=== PATIENT | male | born 1935 | race Caucasian/White ===

== ENCOUNTER 2017-09-15 17:18 | Inpatient (IN) | payer MEDICARE ==
[~2017-09-15 17:18] MED LIST: ISOVUE-370 76%-LOCM 1 ML ONE
[2017-09-15 19:11] LABS: #Eosinphils 0.1 thou/uL (0.0-0.7); #Lymphocytes 1.9 thou/uL (1.20-3.40); #Monocytes 0.9 thou/uL (0.11-0.59); #Neutrophils 5.7 thou/uL (1.40-6.50); %Basophils 0.5 % (0.0-1.0); %Eosinophils 0.9 % (0.0-10.0); %Lymphocytes 22.5 % (21.0-51.0); %Monocytes 10.2 % (0.0-10.0); %Neutrophils 65.8 % (42.0-75.0); Hemoglobin 13.5 g/dL (14.0-18.0); Mean Corpuscular HGB CONC 33.4 g/dL (32.0-36.0); Mean Corpuscular Volume 95.8 fl (80.0-94.0); Mean Platelet Volume 8.6 fL (7.4-10.4); Platelet Count 202 thou/uL (130-400); RBC Distribution Width 12.3 % (11.5-14.5); Red Blood Cell (RBC) Count 4.24 mill/uL (4.70-6.10); White Blood Cell (WBC) Count 8.6 thou/uL (4.8-10.8)
[2017-09-15 19:19] LABS: Prothrombin Time 13.3 SEC (12.0-14.7)
[2017-09-15 19:34] LABS: ALT (SGPT) 11 U/L (8-55); AST (SGOT) 13 U/L (5-34); Albumin 3.6 g/dL (3.4-4.8); Alkaline Phosphatase 70 U/L (40-150); Anion Gap 9 mmol/L (10-20); BUN (Urea Nitrogen) 21 mg/dL (8.4-25.7); Bilirubin, Total 0.7 mg/dL (0.2-1.2); Calc. Creatinine Clearance 0 mL/min (70-130); Calcium 8.4 mg/dL (7.8-10.44); Carbon Dioxide 32 mmol/L (23-31); Chloride 103 mmol/L (98-107); Estimated GFR-MDRD Greater than 90; Globulin 2.3 g/dL (2.4-3.5); Glucose 90 mg/dL (83-110); Potassium 3.8 mmol/L (3.5-5.1); Protein, Total 5.9 g/dL (5.8-8.1); Sodium 140 mmol/L (136-145)
[2017-09-15 19:39] LABS: CKMB 0.9 ng/mL (0-6.6); Troponin I Less than 0.010 ng/mL (< 0.028)
--- NOTE | 2017-09-15 20:26 | CT ---
CT AORTOGRAM CHEST AND ABDOMEN WITH IV CONTRAST: 09/15/17 Multiple axial tomograms obtained through the chest and abdomen from aortic arch through the aortic b ifurcation in the arterial phase and multiplanar reconstruction. 3D postprocessing following an aorto gram protocol. HISTORY: Chest pain. Assess for dissection. Thoracic and abdominal aorta shows no evidence of dissection. There is atherosclerotic change involvi ng the distal abdominal aorta with peripheral thrombus producing mild luminal narrowing. There is mil d ulceration within this thrombus noted. There is no significant aneurysmal dilatation. The diameter of the distal abdominal aorta just proximal to the bifurcation measuring at 1.5 cm. the major abdomin al aortic branches including celiac artery, superior mesenteric artery, and renal arteries appear unr emarkable. aortic bifurcation is patent with mild disease seen in the visualized common iliac arterie s. No significant iliac stenosis. There is a fixed diaphragmatic hernia with large portion of the stomach fixed above the diaphragm. Liver, spleen and pancreas are unremarkable. Adrenal glands and kidneys unremarkable. Bowel loops unr emarkable. IMPRESSION: 1. No evidence of thoracic or abdominal aortic dissection. 2. Atherosclerotic changes involving the distal abdominal aorta with prominent soft plaque/throm bus narrowing the lumen and there is evidence of mild ulceration within this soft plaque. No aneurysm al dilatation and no evidence of significant stenosis. 3. Fixed diaphragmatic hernia. POS: ROBIN
[2017-09-15 22:39] LABS: Bilirubin Negative (Negative); Blood, Urine Negative (Negative); Clarity CLEAR (Clear); Glucose, Urine (Dipstick) Negative (Negative); Leukocyte Negative (Negative); Nitrite Negative (Negative); Protein, Urine (Dipstick) Negative (Neg-Trace); Specific Gravity, Urine 1.024 (1.002-1.036)
[2017-09-15] MEDS ORDERED: Ondansetron HCl/PF 4 MG/2 ML Vial IVP PRN (23:27)
[2017-09-15] MEDS ORDERED: Ondansetron ODT 4 MG TAB SL PRN (23:27)
[2017-09-15] MEDS ORDERED: Acetaminophen 325 MG TAB PO PRN (23:27)
[2017-09-15 23:34] LABS: Troponin I 0.023 ng/mL (< 0.028)
[2017-09-15 23:50] VITALS: BMI 21.9
[2017-09-16 02:37] LABS: Troponin I Less than 0.010 ng/mL (< 0.028)
[2017-09-16 04:59] LABS: #Eosinphils 0.1 thou/uL (0.0-0.7); #Lymphocytes 2.1 thou/uL (1.20-3.40); #Monocytes 0.8 thou/uL (0.11-0.59); #Neutrophils 5.8 thou/uL (1.40-6.50); %Eosinophils 0.8 % (0.0-10.0); %Lymphocytes 23.7 % (21.0-51.0); %Monocytes 9.2 % (0.0-10.0); %Neutrophils 66.3 % (42.0-75.0); Hemoglobin 13.8 g/dL (14.0-18.0); Mean Corpuscular HGB CONC 32.9 g/dL (32.0-36.0); Mean Corpuscular Hemoglobin 31.7 pg (27.0-31.0); Mean Corpuscular Volume 96.2 fl (80.0-94.0); Mean Platelet Volume 8.4 fL (7.4-10.4); Platelet Count 201 thou/uL (130-400); RBC Distribution Width 12.2 % (11.5-14.5); Red Blood Cell (RBC) Count 4.37 mill/uL (4.70-6.10); White Blood Cell (WBC) Count 8.8 thou/uL (4.8-10.8)
--- NOTE | 2017-09-16 05:03 | HP ---
CHIEF COMPLAINT: Chest pain. HISTORY OF PRESENT ILLNESS: This is an 82-year-old male with a known history of coronary artery dise ase, status post CABG x3 vessels and stent, hypertension, who presents with a chief complaint of ches t pain. Specifically, the patient describes a sharp chest pain associated with nausea and diaphoresi s. His care earlier today at the time of my evaluation is currently resolved. The patient is a reas onable historian. He has his daughter and at bedside. His daughter does supplement his history as well. It appears that over the last week, the patient has been having some intermittent lower abdominal graciela n, which is currently not present as well. Daughter states that he has never had abdominal pain in t he past either. The patient denies any diarrhea or constipation and endorses some "darkness" to the stool, but he is not completely able to recall the consistency of his stool. While he has had a week long history of abdominal discomfort earlier today with the chest pain was the first time he actuall y had nausea feeling. In the emergency department, the patient was evaluated with a CTA for possible aortic dissection. Wh ile it was negative for aortic dissection, it did indicate a mildly ulcerated aortic thrombus. There is also evidence of significant atherosclerotic plaque disease in the aorta. REVIEW OF SYSTEMS: As per HPI. Constitutional: No fevers, chills, no recent weight changes. HEENT : No new headaches or vision changes or dizziness. Cardiovascular: Chest pain as described above. This is subjectively described as different from his prior episodes of cardiac chest pain. Respirat ory: No recent upper respiratory infection symptoms such as cough, sinus congestion, postnasal drip. Gastrointestinal: Episodic of nausea, no emesis. Stools as described above. Last bowel movement was earlier today. Genitourinary: Denies any dysuria, any change in urine in quantity or quality. Musculoskeletal: Denies any moderate myalgias, arthralgias, malaise or fatigue. Neurologic: Denies any paresthesias or anesthesias. Remainder of review of systems otherwise negative. PAST MEDICAL HISTORY: As per HPI includes the followin. Status post CABG in 1994 with ODOM to the LAD and vein graft to the obtuse marginal, first jonas hardy. 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 2. Status post cholecystectomy. 3. Status post circumcision. 4. Coronary artery disease, status post CABG as described above. 5. Hypertension. 6. Hyperlipidemia. 7. Psoriasis. 8. Status post hemorrhoid surgery. 9. Status post skin cancer removal. FAMILY HISTORY: Significant for cardiovascular disease. HOME MEDICATIONS: Please see the EMR for full regimen. The patient and his family deny any changes within the last month. Of note, his Plavix was discontinued approximately 6 months ago on an outpati ent basis. The patient himself is not clear as to the reason for the discontinuation. SOCIAL HISTORY: The patient is . His is at bedside. His daughter is at bedside. Denie s any alcohol or tobacco use or illicit drug use. PHYSICAL EXAMINATION: VITAL SIGNS: Temperature 97.7, pulse of 62, blood pressure 188/86, respirations 16, satting 96% on r oom air. GENERAL: The patient is awake, alert, appropriate, in no acute distress, lying in the hospital bed. HEENT: Normocephalic, atraumatic, extraocular motions are intact. Pupils are equal and reactive. M oist mucous membranes. CARDIOVASCULAR: S1, S2. Pulses 2+ bilateral upper extremities. No murmurs, rubs, or gallops. No p itting pedal edema. RESPIRATORY: Clear to auscultation. Reasonable air movement. No wheezes, rales, or rhonchi. ABDOMEN: Positive bowel sounds, soft, nontender to palpation. No bruits appreciated. MUSCULOSKELETAL: Moving all 4 extremities equally. LABORATORY AND IMAGING: WBC 8.6, hemoglobin 13.5, hematocrit 40.6, platelets 202. PT 13.3, INR 1.0. Sodium 140, potassium 3.8, chloride 103, bicarbonate 32, BUN 21, creatinine 0.79, glucose 90, calci um 8.4, total bilirubin 0.7, AST 13, ALT 11, alkaline phosphatase 70, CK-MB 0.9, troponin has been 0. 01, then 0.023, BNP natriuretic peptide 65.8, total protein 5.9, albumin 3.6. UA is bland. IMAGING: On September 15, 2015, CT aortogram of the chest and abdomen with IV contrast. Impression "n o evidence of thoracic or abdominal aortic dissection. Atherosclerotic changes involving the distal abdominal aorta with prominent soft plaque/thrombus narrowing the lumen and there is evidence of mild ulceration within the soft plaque. Aneurysmal dilatation, no evidence of significant stenosis. Fix ed diaphragmatic hernia." ASSESSMENT AND PLAN: This is an 82-year-old male with a known history of coronary artery disease, st atus post coronary artery bypass graft, hypertension, who presents with a chief complaint of chest pa in. 1. Chest pain. The patient certainly has a significant cardiac history reported, though the patient for de jocelyn cardiac disease on top of his known coronary artery disease. Serial troponins, echocard iogram in the morning. Would appreciate Cardiology consultation for the patient's known complex hist ory. 2. Abdominal pain accompanied by chest pain. The patient's CT aortic dissection has been negative f or dissection; however, there is noted mild ulceration within an intraluminal plaque. The patient is currently already on aspirin and statin. I wonder if the patient is a candidate or would benefit fr om any further anticoagulation with Plavix, so I defer to cardiology evaluation. Also, with the ananth ent still has atherosclerotic disease, he certainly is at risk for perhaps the development of anginal discomfort that would be explanatory of his belly pain. In light of his "dark stool," the patient w ill also have a heme check of his stool as well. 3. Hypertension, stable. 4. Diet: N.p.o. after midnight. 5. Activity: As tolerated. 6. Deep venous thrombosis prophylaxis, heparin and TEDs. 7. Admit the patient to observation telemetry. Thank you for asking me to care for your patient. Questions or concerns, contact me at [facility].
[2017-09-16 05:23] LABS: ALT (SGPT) 10 U/L (8-55); AST (SGOT) 11 U/L (5-34); Albumin 3.5 g/dL (3.4-4.8); Alkaline Phosphatase 68 U/L (40-150); Anion Gap 9 mmol/L (10-20); BUN (Urea Nitrogen) 18 mg/dL (8.4-25.7); Bilirubin, Total 0.6 mg/dL (0.2-1.2); Calc. Creatinine Clearance 64 mL/min (70-130); Calcium 8.7 mg/dL (7.8-10.44); Carbon Dioxide 29 mmol/L (23-31); Cardiac Risk 2.8 (Less than 4.5); Chloride 106 mmol/L (98-107); Cholesterol 128 mg/dl (< 200 Desired); Estimated GFR-MDRD Greater than 90; Globulin 2.1 g/dL (2.4-3.5); Glucose 94 mg/dL (83-110); HDL Cholesterol 45 mg/dL (>60 Neg Risk); LDL Cholesterol, Calculated 66 mg/dL; Potassium 4.1 mmol/L (3.5-5.1); Protein, Total 5.6 g/dL (5.8-8.1); Sodium 140 mmol/L (136-145); Triglycerides 85 mg/dL (Less than 150)
[2017-09-16] MEDS ORDERED: Aspirin 325 MG TAB PO SCH (08:00)
[2017-09-16] MEDS: busPIRone HCl 5 MG TAB PO SCH ×2 (08:55→19:54)
[2017-09-16] MEDS: Aspirin 325 MG TAB PO SCH (08:55)
[2017-09-16] MEDS: Lisinopril 20 MG TAB PO SCH (08:55)
[2017-09-16] MEDS ORDERED: Heparin 5,000 UNITS/ML VIAL SC SCH (09:00)
[2017-09-16] MEDS ORDERED: methylPREDNISolone 4 mg Tablet PO SCH (09:00)
--- NOTE | 2017-09-16 11:31 | PDOC.EVN ---
Event Note - Event Note Event Note: Pleasant 82 M admitted earlier today for chest pain. has a significant cardiac history. Currently chest pain free and cardiology has been consulted. Will follow recommendations and continue with his care.
[2017-09-16] MEDS ORDERED: Communication Order-Pharmacy FS SCH (14:45)
[2017-09-16] MEDS ORDERED: Enoxaparin Sodium 40 MG/0.4 ML SYRINGE SC SCH (14:45)
[2017-09-16] MEDS ORDERED: Clopidogrel Bisulfate 300 MG TAB PO SCH (14:45)
[2017-09-16] MEDS: Metoprolol Tartrate 25 MG TAB PO SCH ×2 (15:24→19:54)
[2017-09-16] MEDS: Amlodipine 5 MG TAB PO SCH (17:28)
--- NOTE | 2017-09-16 17:36 | CON ---
DATE OF CONSULTATION: 09/16/2017 REASON FOR CONSULTATION: Unstable angina. HISTORY OF PRESENT ILLNESS: Mr. Ash is an 82-year-old gentleman. He has a history of coronar y artery disease and had an episode of chest discomfort yesterday and again today typical of angina. He has a pressure heavy squeezing feeling in his chest yesterday, brought him to the emergency room. It was a light discomfort in his chest yesterday after he got up and walked around. PAST MEDICAL HISTORY: 1. He has history of coronary artery bypass grafting in 1994 with internal mammary artery to the LAD and a vein graft to the obtuse marginal and diagonal. 2. History of stent implantation of the saphenous vein graft to the obtuse marginal in 2014. 3. The patient most recently underwent cardiac catheterization by Dr. Pandya in 2014. At that time, t he patient was taken to the catheterization lab, was found to have 3-vessel coronary disease. He was found to have a patent internal mammary to the LAD. He was found to have a patent graft to the obtu se marginal. An attempt was made to place a filter wire, but that was not successful with balloon di latation. The patient did have no reflow phenomenon, ultimately he underwent stent implantation with a 3.0 x 32 mm Promus drug-eluting stent. There was no mention of any other grafts. The patient has done well up until yesterday. MEDICATIONS: At home: 1. Simvastatin. 2. Metoprolol. 3. Aspirin. 4. Enbrel 5. Methylprednisolone. ALLERGIES: None known. SOCIAL HISTORY: No alcohol or tobacco. He has a very supportive family. REVIEW OF SYSTEMS: CONSTITUTIONAL: No significant weight gain or loss. VISION: No changes. HEARING: No changes. PULMONARY: No cough or wheezing. GASTROINTESTINAL: No nausea, vomiting, or diarrhea. SKIN: No rashes. NEUROLOGIC: No unilateral weakness or numbness. PSYCHIATRIC: No unusual depression or anxiety. HEMATOLOGIC: No unusual bruising. GENITOURINARY: No burning with urination. PHYSICAL EXAMINATION: GENERAL: This is a pleasant gentleman, resting comfortably, in no distress. VITAL SIGNS: Blood pressure high 175/ 84, pulse 61 and regular. HEENT: Eyes: Sclerae nonicteric. Mouth: Mucous membranes are moist. NECK: Supple, no lymphadenopathy. LUNGS: Clear. No wheezing, rales, or rhonchi. CARDIAC: Normal S1, normal S2. There is no murmur, rub, or gallop. ABDOMEN: Soft, nontender. EXTREMITIES: No clubbing or cyanosis. There is no edema. LABORATORY AND X-RAY FINDINGS: EKG did not show any acute changes. Troponin levels were in the nega tive range, the peak is 0.023, still in the negative range just below the indeterminate range. ASSESSMENT: 1. Previous coronary artery bypass grafting. 2. Previous stent implantation. 3. Unstable angina with some recurrent discomfort with walking at low level activity here. PLAN: 1. Resume Plavix. 2. Give him one dose of enoxaparin. 3. Continue statin therapy. 4. Add amlodipine in view of high blood pressure. 5. Proceed to cardiac catheterization tomorrow. I discussed risks of stroke, heart attack, iodine a llergy, loss of blood supply to the leg or kidney, stent thrombosis, stent restenosis. He understand s and wishes to proceed.
[2017-09-16] MEDS: Atorvastatin Calcium 20 MG TAB PO SCH (19:54)
[2017-09-17] MEDS: Aspirin 325 MG TAB PO SCH (04:40)
[2017-09-17] MEDS: busPIRone HCl 5 MG TAB PO SCH ×2 (04:40→20:26)
[2017-09-17] MEDS: Lisinopril 20 MG TAB PO SCH (04:40)
[2017-09-17] MEDS: Amlodipine 5 MG TAB PO SCH (04:40)
[2017-09-17] MEDS: Metoprolol Tartrate 25 MG TAB PO SCH ×2 (04:41→20:26)
[2017-09-17 05:24] LABS: Anion Gap 10 mmol/L (10-20); BUN (Urea Nitrogen) 17 mg/dL (8.4-25.7); Calc. Creatinine Clearance 61 mL/min (70-130); Calcium 8.6 mg/dL (7.8-10.44); Carbon Dioxide 31 mmol/L (23-31); Chloride 105 mmol/L (98-107); Estimated GFR-MDRD 88; Glucose 89 mg/dL (83-110); Potassium 3.4 mmol/L (3.5-5.1); Sodium 143 mmol/L (136-145)
[2017-09-17] MEDS ORDERED: Sodium Chloride 0.9% 1,000 ML IV SCH ×2 (06:00→08:15)
[2017-09-17] MEDS ORDERED: Potassium Chloride 20 MEQ TAB PO SCH ×2 (07:45→08:00)
[2017-09-17] MEDS ORDERED: Communication Order-Pharmacy FS SCH (08:15)
[2017-09-17] MEDS ORDERED: Heparin 10,000 UNITS/1 ML VIAL ONE (08:18)
[2017-09-17] MEDS ORDERED: Fentanyl 100 MCG/2 ML VIAL ONE (09:00)
[2017-09-17] MEDS ORDERED: Midazolam HCl 2 mg/2 ml Vial ONE (09:00)
[2017-09-17] MEDS ORDERED: Clopidogrel Bisulfate 300 MG TAB ONE (09:22)
[2017-09-17] MEDS ORDERED: Bivalirudin 250 MG VIAL ONE (09:22)
[2017-09-17] MEDS ORDERED: Adenosine 6 MG/2 ML VIAL ONE (09:34)
[2017-09-17] MEDS ORDERED: Nitroglycerin 100MG/250ML BOT 250 ML ONE (09:49)
--- NOTE | 2017-09-17 11:26 | PDOC.PN ---
- Subjective Encounter Start Date: 09/17/17 Encounter Start Time: 11:30 Subjective: no complaints. Chest pain free. -: No acute events overight - Objective MAR Reviewed: Yes Vital Signs & Weight: Vital Signs (12 hours) Temp Pulse Resp BP BP Pulse Ox 09/17/17 08:00 97.6 F 58 L 16 09/17/17 07:33 97.6 F 58 L 16 117/67 94 L 09/17/17 04:40 56 L 143/73 H 09/17/17 04:33 97.4 F L 56 L 12 125/69 95 I&O: 09/16/17 09/17/17 09/18/17 06:59 06:59 06:59 Intake Total 600 Balance 600 Result Diagrams: 09/16/17 04:41 09/17/17 04:38 Phys Exam - Physical Examination Constitutional: NAD HEENT: PERRLA, moist MMs, sclera anicteric Neck: supple, full ROM Respiratory: no wheezing, no rales, no rhonchi, clear to auscultation bilateral Cardiovascular: RRR, no significant murmur, no rub Gastrointestinal: soft, non-tender, no distention, positive bowel sounds Musculoskeletal: no edema, pulses present Neurological: non-focal, moves all 4 limbs Psychiatric: normal affect, A&O x 3 Skin: no rash, normal turgor Dx/Plan (1) Chest pain Code(s): R07.9 - CHEST PAIN, UNSPECIFIED Status: Acute Qualifiers: Chest pain type: chest pain due to myocardial ischemia Ischemic chest pain type: unstable angina pectoris Qualified Code(s): I20.0 - Unstable angina Comment: Clinically stable and chest pain free- seen earlier in the day. Had Catheterization- 2 vessel disease seen (LAD and Cx). CHAD placed successfully. To continue ASA, Statin, metoprolol, Imdur and lisinopril. Plavix started. (2) CAD (coronary artery disease) Code(s): I25.10 - ATHSCL HEART DISEASE OF [place] CORONARY ARTERY W/O ANG PCTRS Status: Acute Qualifiers: Coronary Disease-Associated Artery/Lesion type: bypass graft [place] vs. transplanted heart: [place] heart Associated angina: with unstable angina Qualified Code(s): I25.700 - Atherosclerosis of coronary artery bypass graft(s) , unspecified, with unstable angina pectoris Plan: As above. (3) S/P CABG x 3 Code(s): Z95.1 - PRESENCE OF AORTOCORONARY BYPASS GRAFT Status: Acute Comment: As above. (4) HTN (hypertension) Code(s): I10 - ESSENTIAL (PRIMARY) HYPERTENSION Status: Acute Qualifiers: Hypertension type: essential hypertension Qualified Code(s): I10 - Essential (primary) hypertension Comment: Controlled and at goal. Continue metoprolol and Lisinopril. (5) HLD (hyperlipidemia) Code(s): E78.5 - HYPERLIPIDEMIA, UNSPECIFIED Status: Acute Qualifiers: Hyperlipidemia type: unspecified Qualified Code(s): E78.5 - Hyperlipidemia , unspecified Comment: on Simvastatin - Plan cont current plan of care * .
[2017-09-17] MEDS ORDERED: Iopamidol 370 76% 100 ML VIAL ONE (13:01)
[2017-09-17] MEDS ORDERED: Iopamidol 370 76% 50 ML VIAL FS ONE (13:01)
--- NOTE | 2017-09-17 14:42 | CCL ---
CARDIAC CATHETERIZATION REPORT: Date: 09/17/17 PROCEDURE: Left heart catheterization, selective arteriography, left ventriculography, bypass graft angiography, ODOM injection, and stent placement in obtuse marginal graft restenosis, stent placement in obtuse marginal graft, and stent placement in the first obtuse marginal, all drug-eluting stents. INDICATION: Acute coronary syndrome. DESCRIPTION OF PROCEDURE: The patient was brought to the cardiac senior laboratory technician and the right groin was prepped and draped in the usual fashion. 1% lidocaine was infiltrated. A 6 [place] sheath was placed into the right femoral artery. A 6 [place] angulated pigtail was inserted and pressures were obtained. Left ventriculogram was performed using 30 ml of contrast at 12 ml/s in a JESUS 30 degree projection. Pressures were obtained and the pigtail was removed. A 6 [place] Whitney left-4 followed by a 6 [place] Whitney right-4 was used for coronary arteriography. The right-4 was also used to opacify the grafts and the ODOM to the LAD. Angiomax bolus and drip were started. Patient was given an initial 300 mg of Plavix, having 300 mg the day before. A 6 [place] right-1 guide was inserted, but did not engage the graft well, so a 6 [place] right-4 guide was used. A filter wire could not be advanced, so a floppy Choice wire was advanced into the distal graft. Synergy 3.0 x 20 mm stent was positioned and deployed in the in-stent obtuse marginal graft restenosis. This was then deployed. The proximal lesion in the obtuse marginal graft was then stented with Synergy 3.5 x 16 mm stent. The right-4 guide was removed and a 6 [place] Whitney left-4 was inserted. A floppy Choice was directed into the first obtuse marginal and this was predilated with Emerge 2.0 x 12 mm balloon. Intracoronary nitroglycerin 200 mcg was given. Synergy 2.25 x 20 mm stent was then positioned and deployed. Final result was excellent. Angiomax was discontinued. The sheath was sutured in place. The patient was transferred to PACU. RESULTS: PRESSURES: Aorta 124/60, mean of 86 Left Ventricle 130/8 LEFT VENTRICULOGRAM: Normal left ventricular function with ejection fraction of 60-65%. CORONARY ARTERIOGRAPHY: 1. The left main was normal. 2. The LAD had a 70% proximal stenosis and was totally occluded in its mid portion. There was an 80% lesion in a small diagonal. 3. The circumflex had a 90% first obtuse marginal lesion. The second obtuse marginal, which had been grafted, was totally occluded. 4. The right coronary artery had a 20% mid stenosis. BYPASS GRAFTS: 1. The ODOM to the LAD was patent. 2. The second obtuse marginal graft had a 70% proximal stenosis. There was also a 70% in-stent restenosis. 3. The diagonal graft was totally occluded, which is an old finding. INTERVENTION RESULTS: 1. The in-stent restenosis to the obtuse marginal graft was reduced from 70% to 0%. 2. The proximal obtuse marginal graft was reduced from 70% to 0%. 3. The first obtuse marginal was reduced from 90% to 0%. IMPRESSION: 1. Two vessel coronary artery disease (LAD and circumflex). 2. Two of three bypass grafts patent. 3. Normal left ventricular function. 4. Successful drug-eluting stent placement in the in-stent restenosis of the obtuse marginal graft, the proximal obtuse marginal graft, and the [place] first obtuse marginal. PHOEBED
[2017-09-17] MEDS: Acetaminophen 325 MG TAB PO PRN (17:28)
[2017-09-17] MEDS: Sodium Chloride 0.9% 1,000 ML IV SCH (17:37)
[2017-09-17] MEDS: Atorvastatin Calcium 20 MG TAB PO SCH (20:26)
--- NOTE | 2017-09-17 21:54 | EKG ---
Test Reason : POST STENTS X 3 Blood Pressure : / mmHG Vent. Rate : 052 BPM Atrial Rate : 052 BPM P-R Int : 126 ms QRS Dur : 094 ms QT Int : 440 ms P-R-T Axes : 040 -02 079 degrees QTc Int : 409 ms Sinus bradycardia RSR' or QR pattern in V1 suggests right ventricular conduction delay Nonspecific T wave abnormality Abnormal ECG Confirmed by WILMER ZHANG ([id number]) on 09/17/2017 9:54:22 PM Referred By: [place] Confirmed By:WILMER ZHANG
[2017-09-18 04:21] LABS: #Basophils 0.1 thou/uL (0.0-0.2); #Eosinphils 0.4 thou/uL (0.0-0.7); #Lymphocytes 2.6 thou/uL (1.20-3.40); #Monocytes 0.8 thou/uL (0.11-0.59); #Neutrophils 3.8 thou/uL (1.40-6.50); %Basophils 1.3 % (0.0-1.0); %Eosinophils 4.7 % (0.0-10.0); %Monocytes 10.6 % (0.0-10.0); %Neutrophils 49.4 % (42.0-75.0); Hemoglobin 13.7 g/dL (14.0-18.0); Hemoglobin 13.8 g/dL (14.0-18.0); Mean Corpuscular HGB CONC 32.5 g/dL (32.0-36.0); Mean Corpuscular HGB CONC 32.8 g/dL (32.0-36.0); Mean Corpuscular Hemoglobin 31.5 pg (27.0-31.0); Mean Corpuscular Hemoglobin 31.9 pg (27.0-31.0); Mean Corpuscular Volume 96.8 fl (80.0-94.0); Mean Corpuscular Volume 97.1 fl (80.0-94.0); Mean Platelet Volume 8.2 fL (7.4-10.4); Platelet Count 183 thou/uL (130-400); Platelet Count 185 thou/uL (130-400); RBC Distribution Width 12.4 % (11.5-14.5); Red Blood Cell (RBC) Count 4.31 mill/uL (4.70-6.10); Red Blood Cell (RBC) Count 4.37 mill/uL (4.70-6.10); White Blood Cell (WBC) Count 7.7 thou/uL (4.8-10.8); White Blood Cell (WBC) Count 7.8 thou/uL (4.8-10.8)
[2017-09-18 04:30] LABS: ALT (SGPT) 14 U/L (8-55); AST (SGOT) 14 U/L (5-34); Albumin 3.4 g/dL (3.4-4.8); Alkaline Phosphatase 64 U/L (40-150); Anion Gap 9 mmol/L (10-20); BUN (Urea Nitrogen) 13 mg/dL (8.4-25.7); Calc. Creatinine Clearance 59 mL/min (70-130); Calcium 8.7 mg/dL (7.8-10.44); Carbon Dioxide 31 mmol/L (23-31); Chloride 108 mmol/L (98-107); Estimated GFR-MDRD 84; Globulin 1.9 g/dL (2.4-3.5); Glucose 89 mg/dL (83-110); Potassium 4.9 mmol/L (3.5-5.1); Protein, Total 5.3 g/dL (5.8-8.1); Sodium 143 mmol/L (136-145)
[2017-09-18] MEDS: Sodium Chloride 0.9% 1,000 ML IV SCH ×2 (05:33→08:47)
[2017-09-18] MEDS: Acetaminophen 325 MG TAB PO PRN (06:28)
[2017-09-18] MEDS: Aspirin 325 MG TAB PO SCH (08:44)
[2017-09-18] MEDS: Lisinopril 20 MG TAB PO SCH (08:44)
[2017-09-18] MEDS: Amlodipine 5 MG TAB PO SCH (08:45)
[2017-09-18] MEDS: Metoprolol Tartrate 25 MG TAB PO SCH (08:46)
[2017-09-18] MEDS: busPIRone HCl 5 MG TAB PO SCH (08:47)
[2017-09-18] MEDS ORDERED: Clopidogrel Bisulfate 75 MG TAB PO SCH (09:00)
[2017-09-18 10:08] VITALS: TEMP 98
--- NOTE | 2017-09-18 10:17 | PDOC.PN ---
- Subjective Encounter Start Date: 09/18/17 Encounter Start Time: 10:15 Subjective: No new commplaints. Chest pain free. -: No acute events overnight. - Objective MAR Reviewed: Yes Vital Signs & Weight: Vital Signs (12 hours) Temp Pulse Resp BP BP Pulse Ox 09/18/17 08:45 98.0 F 65 17 149/74 H 149/74 H 97 09/18/17 08:44 143/73 H 09/18/17 04:00 81 18 158/75 H 93 L 09/18/17 01:17 94 L I&O: 09/17/17 09/18/17 09/19/17 06:59 06:59 06:59 Intake Total 600 1520 240 Output Total 1100 Balance 600 420 240 Result Diagrams: 09/18/17 04:02 09/18/17 04:02 Phys Exam - Physical Examination Constitutional: NAD HEENT: PERRLA, moist MMs, sclera anicteric Neck: supple, full ROM Respiratory: no wheezing, no rales, no rhonchi, clear to auscultation bilateral Cardiovascular: RRR, no significant murmur, no rub Gastrointestinal: soft, non-tender, no distention, positive bowel sounds Musculoskeletal: no edema, pulses present Neurological: non-focal, moves all 4 limbs Psychiatric: normal affect, A&O x 3 Skin: no rash, normal turgor Dx/Plan (1) Chest pain Code(s): R07.9 - CHEST PAIN, UNSPECIFIED Status: Acute Qualifiers: Chest pain type: chest pain due to myocardial ischemia Ischemic chest pain type: unstable angina pectoris Qualified Code(s): I20.0 - Unstable angina Plan: To continue ASA, Statin, metoprolol, Imdur and lisinopril. Plavix started. Comment: Clinically stable and chest pain free- seen earlier in the day. Had Catheterization- 2 vessel disease seen (LAD and Cx). CHAD placed successfully. (2) CAD (coronary artery disease) Code(s): I25.10 - ATHSCL HEART DISEASE OF [place] CORONARY ARTERY W/O ANG PCTRS Status: Acute Qualifiers: Coronary Disease-Associated Artery/Lesion type: bypass graft [place] vs. transplanted heart: [place] heart Associated angina: with unstable angina Qualified Code(s): I25.700 - Atherosclerosis of coronary artery bypass graft(s) , unspecified, with unstable angina pectoris Plan: As above (3) S/P CABG x 3 Code(s): Z95.1 - PRESENCE OF AORTOCORONARY BYPASS GRAFT Status: Acute Comment: As above. (4) HTN (hypertension) Code(s): I10 - ESSENTIAL (PRIMARY) HYPERTENSION Status: Acute Qualifiers: Hypertension type: essential hypertension Qualified Code(s): I10 - Essential (primary) hypertension Comment: Controlled and at goal. Continue metoprolol, amlodipine and Lisinopril. (5) HLD (hyperlipidemia) Code(s): E78.5 - HYPERLIPIDEMIA, UNSPECIFIED Status: Acute Qualifiers: Hyperlipidemia type: unspecified Qualified Code(s): E78.5 - Hyperlipidemia , unspecified Comment: on Simvastatin - Plan cont current plan of care * .
[2017-09-18 12:20] VITALS: BP 113/63
--- NOTE | 2017-09-18 14:33 | DIS ---
DATE OF DISCHARGE: 09/18/2017 DISCHARGE DIAGNOSES: Coronary artery disease with unstable angina. SECONDARY DIAGNOSES: Status post CABG in 1994 with ODOM to the LAD and vein graft to the obtuse marginal, CAD, hypertension, hyperlipidemia, psoriasis. CONSULTS: Cardiology. HISTORY OF PRESENT ILLNESS/HOSPITAL COURSE: An 82-year-old male with known CAD , status post CABG and hypertension who presented to the emergency room with chest pain which was described as sharp, associated with nausea and diaphoresis. He also had some accompanying abdominal pain. At the emergency room, he had a CTA for possible aortic dissection, which was negative, but shows a mildly ulcerated aortic thrombus. There was also evidence of significant atherosclerotic plaque disease in the aorta. Labs showed troponin was less than 0.010 and was trended and remained negative. He was reviewed by Cardiology who made an assessment of unstable angina and he was taken for cardiac catheterization which revealed 2-vessel disease seen in the LAD and circumflex. A drug-eluting stent was placed successfully. He is to continue on aspirin, statin, metoprolol, Imdur and lisinopril. He was also started on Plavix. He is to follow up with his obstetrics tech and primary care physician within 1 week of discharge. He remained stable throughout his hospital stay and remained chest pain free. Physical Examination Constitutional: NAD HEENT: PERRLA, moist MMs, sclera anicteric Neck: supple, full ROM Respiratory: no wheezing, no rales, no rhonchi, clear to auscultation bilateral Cardiovascular: RRR, no significant murmur, no rub Gastrointestinal: soft, non-tender, no distention, positive bowel sounds Musculoskeletal: no edema, pulses present Neurological: non-focal, moves all 4 limbs Psychiatric: normal affect, A&O x 3 Skin: no rash, normal turgor DISCHARGE MEDICATIONS: Amlodipine 2.5 mg daily, aspirin 325 mg daily, buspirone 5 mg b.i.d., clopidogrel 75 mg daily, esomeprazole 40 mg daily, etanercept 5 mg subcu q. 7 days, isosorbide mononitrate 30 mg daily, lisinopril 20 mg daily, methylprednisolone 40 mg as directed, metoprolol tartrate 20 mg b.i.d., simvastatin 40 mg at bedtime. PROCEDURES: Cardiac catheterization. IMAGING: CT dissection, results as above. DIET: Heart healthy. CARE GOALS: To follow up with his primary care physician within 1 week of discharge. The patient was instructed to take his medications as prescribed and report to the emergency room if he develops chest pain, diaphoresis, dizziness or loss of consciousness. Activity as tolerated. Discharge time 65 minutes including chart review and documentation. KERLINE
--- NOTE | 2017-09-20 09:24 | EKG ---
Test Reason : Blood Pressure : / mmHG Vent. Rate : 062 BPM Atrial Rate : 062 BPM P-R Int : 120 ms QRS Dur : 094 ms QT Int : 422 ms P-R-T Axes : 034 -06 078 degrees QTc Int : 428 ms Normal sinus rhythm RSR' or QR pattern in V1 suggests right ventricular conduction delay Minimal voltage criteria for LVH, may be normal variant Nonspecific T wave abnormality Abnormal ECG When compared with ECG of 17-SEP-2017 11:25, No significant change was found Confirmed by WILMER ZHANG ([id number]) on 09/20/2017 9:23:29 AM Referred By: [place] Confirmed By:WILMER ZHANG
[2017-09-21] MEDS ORDERED: (Etanercept [Enbrel] 50 MG) SC SCH (09:00)
--- NOTE | 2017-10-17 16:18 | EKG ---
Test Reason : Blood Pressure : / mmHG Vent. Rate : 062 BPM Atrial Rate : 062 BPM P-R Int : 110 ms QRS Dur : 094 ms QT Int : 442 ms P-R-T Axes : 004 -04 068 degrees QTc Int : 448 ms Sinus rhythm with short GA Incomplete right bundle branch block Moderate voltage criteria for LVH, may be normal variant No STEMI Borderline ECG Confirmed by JOSE L ALANIZ, MARCELLUS ([id number]), editor index MONSE SANTOYO ([id number] on 10/17/2017 4:18:13 PM Referred By: Confirmed By:MARCELLUS DOMINGO MD
== END 2017-09-18 13:10 | disposition home or self-care (01) | DRG 247 ==
LOC: ERS 17:18 → 2SW 20:40 → OBSVTOIN 09-16 14:39
PROVIDERS: ADMIT Internal Medicine; ATTEND Internal Medicine
PROC: 4A023N7 Measurement of Cardiac Sampling and Pressure, Left Heart, Percutaneous Approach (ICD-10-PCS; principal; 2017-09-17)
PROC: 027236Z Dilation of Coronary Artery, Three Arteries with Three Drug-eluting Intraluminal Devices, Percutaneous Approach (ICD-10-PCS; 2017-09-17)
PROC: B2111ZZ Fluoroscopy of Multiple Coronary Arteries using Low Osmolar Contrast (ICD-10-PCS; 2017-09-17)
PROC: B2181ZZ Fluoroscopy of Left Internal Mammary Bypass Graft using Low Osmolar Contrast (ICD-10-PCS; 2017-09-17)
PROC: B2151ZZ Fluoroscopy of Left Heart using Low Osmolar Contrast (ICD-10-PCS; 2017-09-17)
DX: I25.700 Atherosclerosis of coronary artery bypass graft(s), unspecified, with unstable angina pectoris (principal); I74.10 Embolism and thrombosis of unspecified parts of aorta; I24.9 Acute ischemic heart disease, unspecified; T82.855A Stenosis of coronary artery stent, initial encounter; I25.110 Atherosclerotic heart disease of native coronary artery with unstable angina pectoris; Z95.1 Presence of aortocoronary bypass graft; I10 Essential (primary) hypertension; E78.5 Hyperlipidemia, unspecified; Z95.5 Presence of coronary angioplasty implant and graft; Z85.828 Personal history of other malignant neoplasm of skin; L40.9 Psoriasis, unspecified; I70.0 Atherosclerosis of aorta; Z87.891 Personal history of nicotine dependence
CPT/HCPCS: 36415; 71275; 80048; 80053; 80061; 81003; 82553; 83880; 84484; 85025; 85027; 85347; 85610; 92928; 92929; 93005; 93010; 93306; 93459; 93798; 94760; 96360; 99152; 99153; A4216; C1725; C1769; C1874; C1887; C9600; C9601; J0153; J0583; J1644; J1650; J2250; J3010

== ENCOUNTER 2020-04-24 12:52 | Inpatient (IN) | payer MEDICARE, OTHER ==
[2020-04-24 13:30] LABS: #Lymphocytes 0.9 thou/uL (1.20-3.40); #Neutrophils 11.5 thou/uL (1.40-6.50); %Basophils 0.3 % (0.0-1.0); %Eosinophils 0.3 % (0.0-10.0); %Lymphocytes 6.4 % (21.0-51.0); %Monocytes 7.4 % (0.0-10.0); %Neutrophils 85.7 % (42.0-75.0); Hemoglobin 15.1 g/dL (14.0-18.0); Mean Corpuscular HGB CONC 31.4 g/dL (32.0-36.0); Mean Corpuscular Volume 92.2 fL (78.0-98.0); Mean Platelet Volume 9.2 fL (7.4-10.4); Platelet Count 212 thou/uL (130-400); White Blood Cell (WBC) Count 13.4 thou/uL (4.8-10.8)
--- NOTE | 2020-04-24 13:38 | RAD ---
XR Chest 1 View Portable HISTORY: Chest pain COMPARISON: 04/29/2015 FINDINGS: Changes of median sternotomy are again seen. The heart size is normal. The aorta is tortuous. The nan gs are well expanded without focal areas of consolidation, pneumothorax or pleural effusions. IMPRESSION: No radiographic evidence of acute cardiopulmonary process.
[2020-04-24 13:50] LABS: ALT (SGPT) 254 U/L (8-55); AST (SGOT) 239 U/L (5-34); Albumin 4.4 g/dL (3.4-4.8); Alkaline Phosphatase 184 U/L (40-110); Anion Gap 16 mmol/L (10-20); BUN (Urea Nitrogen) 14 mg/dL (8.4-25.7); Bilirubin, Total 3.3 mg/dL (0.2-1.2); CK (CPK) 53 U/L (30-200); Calc. Creatinine Clearance 0 mL/min (70-130); Calcium 9.1 mg/dL (7.8-10.44); Carbon Dioxide 24 mmol/L (23-31); Chloride 104 mmol/L (98-107); Estimated GFR-MDRD 73; Glucose 119 mg/dL (83-110); Lipase 4 U/L (8-78); Potassium 3.5 mmol/L (3.5-5.1); Protein, Total 7.4 g/dL (5.8-8.1); Sodium 140 mmol/L (136-145)
--- NOTE | 2020-04-24 14:07 | CT ---
CT Aortic Dissection Protocol HISTORY: Chest pain, cough COMPARISON: 09/15/2017 FINDINGS: No pleural pericardial effusions are seen. No pneumothoraces or lobar consolidation are identified. T here are new scattered patchy nodular infiltrates in the right lung.There is a calcified granuloma in the left upper lobe. Thoracic and abdominal aorta shows no evidence of aneurysm or dissection. There is atherosclerotic ch chelsie involving the distal abdominal aorta with peripheral thrombus producing mild luminal narrowing. There is mild ulceration within this thrombus noted. There is no significant aneurysmal di latation. The diameter of the distal abdominal aorta just proximal to the bifurcation measuring at 1.5 cm. the major abdominal aortic branches including celiac artery, superior mesenteric artery, and renal arteries appear unremarkable. aortic bifurcation is patent with mild disease seen in the visualized common iliac arteries. No significant iliac stenosis. There is a fixed diaphragmatic hernia with large portion of the stomach fixed above the diaphragm. Liver, spleen and pancreas are unremarkable. Adrenal glands and kidneys unremarkable. Bowel loops unr emarkable. There are postop changes of median sternotomy. Mild degenerative changes are again seen in the spine. IMPRESSION: 1. No evidence of thoracoabdominal aortic dissection or aneurysm. 2. Patchy nodular infiltrates in the right lung are most likely due to infection.
[2020-04-24] MEDS ORDERED: Aspirin Chewable 81 MG TAB ONE (14:33)
[2020-04-24] MEDS ORDERED: Iopamidol-370 76% 500 ML 1 ML ONE (15:01)
[2020-04-24] MEDS ORDERED: cefTRIAXone\\ROCEPHIN 2 GM VIAL ONE (16:25)
[2020-04-24] MEDS ORDERED: Sodium Chloride 0.9% 100 ML ONE (16:25)
--- NOTE | 2020-04-24 16:42 | PDOC.HHP ---
Hospitalist HPI - History of Present Illness Chest pain History of Present Illness: This is an 84-year-old male patient with a history of carotid artery disease status post CABG, hyperlipidemia, hypertension, psoriasis on etanercept who presented with a history of chest pain and cough. Patient notes a couple of times having had retrosternal chest pain. First episode occurred a day ago when he was eating. This lasted for about 10 minutes and subsided. He also had associated nausea. Pain was localized nonradiating. He had no associated shortness of breath however did have wheezing which he said was chronic. He is a chronic smoker. He also notes intermittent swelling of his feet when he stands for long hours. Cough has been going on for the past couple of days productive of whitish sputum nonbloody. He denies any pleuritic chest pain with a cough. On arrival of the ED he was noted to have elevated troponin of 0.053, liver enzymes were elevated. He had a mildly elevated WBC at 13.4,, Chest x-ray was unremarkable however due to concerns for PE he had a CTA which revealed right infiltrates that could be concerning for pneumonia. No pulmonary embolism was noted. He has nonspecific repolarization abnormalitiesscore 7. In the ED received azithromycin and ceftriaxone. Also received 3 to 4 mg of aspirin in ED Hospitalist team was consulted for admission Hospitalist ROS - Review of Systems Constitutional: denies: fever, chills, sweats Respiratory: reports: cough. denies: shortness of breath, hemoptysis, SOB with excertion Gastrointestinal: reports: nausea. denies: vomiting, abdominal pain, diarrhea, constipation Genitourinary: denies: dysuria, frequency, incontinence, hematuria Neurological: denies: weakness, numbness, incoordination - Medication Medications: Etanercept 50 mcg subcutaneous q. 7 days Aspirin 81 mg daily. S omeprazole 40 mg daily Simvastatin 40 mg daily Amlodipine 2.5 mg daily Isosorbide mononitrate 30 mg daily Lisinopril 20 mg daily Metoprolol 25 mg twice daily Allergies: No known drug allergies Hospitalist History - Past Medical History Cardiac: reports: CAD, HTN Other Medical History: Psoriasis - Past Surgical History Past Surgical History: reports: CABG - Family History Family History: reports: cancer - Social History Smoking Status: Smokes 11 or more cig/day Alcohol: reports: None Living Situation: With Family Activity level: independent ambulation - Exam General - other findings: Patient is awake and alert. No acute distress. Eye: PERRL, anicteric sclera, scleral icterus Neck: no JVD, no lymphadenopathy Heart - other findings: S1-S2 present and normal. No murmurs gallops or rubs. Respiratory - other findings: Entry adequate bilaterally. Bilateral coarse basal sounds Gastrointestinal - other findings: Full, soft, nontender, nondistended bowel sounds present and normal. Extremities - other findings: No edema noted Hospitalist Results - Labs Result Diagrams: 04/27/20 03:58 04/27/20 03:58 Lab results: WBC 13.4 thou/uL (4.8-10.8) H 04/24/20 13:19 Hgb 15.1 g/dL (14.0-18.0) 04/24/20 13:19 Hct 47.9 % (42.0-52.0) 04/24/20 13:19 MCV 92.2 fL (78.0-98.0) 04/24/20 13:19 Plt Count 212 thou/uL (130-400) 04/24/20 13:19 Neutrophils % 85.7 % (42.0-75.0) H 04/24/20 13:19 Sodium 140 mmol/L (136-145) 04/24/20 13:19 Potassium 3.5 mmol/L (3.5-5.1) 04/24/20 13:19 Chloride 104 mmol/L (98-107) 04/24/20 13:19 Carbon Dioxide 24 mmol/L (23-31) 04/24/20 13:19 BUN 14 mg/dL (8.4-25.7) 04/24/20 13:19 Creatinine 0.98 mg/dL (0.7-1.3) 04/24/20 13:19 Glucose 119 mg/dL (83-110) H 04/24/20 13:19 Calcium 9.1 mg/dL (7.8-10.44) 04/24/20 13:19 Total Bilirubin 3.3 mg/dL (0.2-1.2) H 04/24/20 13:19 AST 239 U/L (5-34) H 04/24/20 13:19 ALT 254 U/L (8-55) H 09/15/20 13:19 Alkaline Phosphatase 184 U/L (40-110) H 04/24/20 13:19 Creatine Kinase 53 U/L (30-200) 04/24/20 13:19 CK-MB (CK-2) 1.0 ng/mL (0-6.6) 04/24/20 13:19 Troponin I 0.053 ng/mL (< 0.028) H 04/24/20 13:19 Serum Total Protein 7.4 g/dL (5.8-8.1) 04/24/20 13:19 Albumin 4.4 g/dL (3.4-4.8) 04/24/20 13:19 Lipase 4 U/L (8-78) L 04/24/20 13:19 Hospitalist H&P A/P - Plan Plan: This is an 84-year-old male patient with a history of coronary disease status post CABG, hyperlipidemia hypertension and ongoing smoker who presents with chest pain, nausea and some productive cough. He has been admitted for observation and evaluation for chest pain. Possible NSTEMI Mild elevation in troponin of 0.5 presentation Given his chest pain and history this is concerning for NSTEMI Will admit to telemetry floor for observation Trend troponin Start aspirin and statin Start Lovenox Consult cardiology in a.m. Pneumonia Leukocytosis with positive infiltrates in right lung on imaging We will continue azithromycin and ceftriaxone Hepatitis Hepatitis panel ordered. Right upper quadrant ultrasound scan Monitor CMP Psoriasis Will hold eternacept for tonight Reevaluate in a.m. Ongoing smoker Nicotine patch VTE prophylaxistherapeutic: Lovenox Dispositionpending cardiology evaluation
[2020-04-24] MEDS ORDERED: Azithromycin 500 MG VIAL ONE (17:00)
[2020-04-24 17:41] LABS: Troponin I 0.079 ng/mL (< 0.028)
[2020-04-24] MEDS ORDERED: Nicotine 14 MG PATCH TD SCH (18:00)
[2020-04-24] MEDS: Atorvastatin Calcium 20 MG TAB PO SCH (20:41)
[2020-04-24] MEDS: Enoxaparin Sodium 60 MG/0.6 ML SYRINGE SC SCH (20:41)
[2020-04-24] MEDS: Metoprolol Tartrate 25 MG TAB PO SCH (20:41)
[2020-04-24 21:55] LABS: Troponin I 0.104 ng/mL (< 0.028)
[2020-04-25] LABS: HBCM Index 0.08 S/CO (0-0.79); HBSAg Index 0.17 S/CO (0-0.99); Hep A IgM AB Non-Reactive (NonReactive); Hep A IgM S/CO 0.24 S/CO (0-0.79); Hep B Surf Ag Non-Reactive S/CO (NonReactive); Hep C IgG Ab Non-Reactive (NonReactive); Hep C Index 0.08 S/CO (0-0.79); Hepatitis B Core IgM Abs Non-Reactive (NonReactive)
[2020-04-25 00:06] LABS: Troponin I 0.122 ng/mL (< 0.028)
[2020-04-25 06:20] LABS: #Basophils 0.1 thou/uL (0.0-0.2); #Eosinphils 0.5 thou/uL (0.0-0.7); #Lymphocytes 2.2 thou/uL (1.20-3.40); #Neutrophils 5.5 thou/uL (1.40-6.50); %Basophils 0.7 % (0.0-1.0); %Eosinophils 5.5 % (0.0-10.0); %Lymphocytes 23.9 % (21.0-51.0); %Monocytes 10.5 % (0.0-10.0); %Neutrophils 59.4 % (42.0-75.0); Hemoglobin 12.9 g/dL (14.0-18.0); Mean Corpuscular HGB CONC 32.6 g/dL (32.0-36.0); Mean Corpuscular Hemoglobin 30.7 pg (27.0-31.0); Mean Corpuscular Volume 94.2 fL (78.0-98.0); Mean Platelet Volume 9.1 fL (7.4-10.4); Platelet Count 164 thou/uL (130-400); RBC Distribution Width 12.8 % (11.5-14.5); Red Blood Cell (RBC) Count 4.19 mill/uL (4.70-6.10); White Blood Cell (WBC) Count 9.2 thou/uL (4.8-10.8)
[2020-04-25 06:54] LABS: ALT (SGPT) 151 U/L (8-55); AST (SGOT) 102 U/L (5-34); Albumin 3.6 g/dL (3.4-4.8); Alkaline Phosphatase 139 U/L (40-110); Anion Gap 12 mmol/L (10-20); BUN (Urea Nitrogen) 14 mg/dL (8.4-25.7); Bilirubin, Total 2.1 mg/dL (0.2-1.2); Calc. Creatinine Clearance 54 mL/min (70-130); Calcium 8.7 mg/dL (7.8-10.44); Carbon Dioxide 26 mmol/L (23-31); Chloride 105 mmol/L (98-107); Estimated GFR-MDRD 81; Globulin 2.3 g/dL (2.4-3.5); Glucose 92 mg/dL (83-110); Potassium 3.6 mmol/L (3.5-5.1); Protein, Total 5.9 g/dL (5.8-8.1); Sodium 139 mmol/L (136-145)
[2020-04-25] MEDS: Metoprolol Tartrate 25 MG TAB PO SCH ×2 (08:36→19:25)
[2020-04-25] MEDS: Lisinopril 20 MG TAB PO SCH (08:36)
[2020-04-25] MEDS: Amlodipine 5 MG TAB PO SCH (08:36)
[2020-04-25] MEDS: Aspirin 81 mg Enteric Coated Tablet PO SCH (08:36)
[2020-04-25] MEDS: Enoxaparin Sodium 60 MG/0.6 ML SYRINGE SC SCH (08:36)
[2020-04-25] MEDS ORDERED: Aspirin 81 mg Enteric Coated Tablet PO SCH (09:00)
[2020-04-25] MEDS ORDERED: Aspirin 325 MG TAB PO SCH (09:00)
--- NOTE | 2020-04-25 09:31 | ULT ---
RIGHT UPPER QUADRANT ULTRASOUND: Date: 04/24/2020 HISTORY: Elevated liver enzymes, nausea and vomiting. COMPARISON: CT angiogram chest and abdomen 04/24/2020. FINDINGS: Liver echogenicity is within normal limits. Status post cholecystectomy. Common bile duct 0.6 cm. Vis ualized pancreas, IVC, aorta, and spleen are unremarkable. No renal hydronephrosis. No abscess or abn ormal fluid collection within the abdomen. IMPRESSION: Status post cholecystectomy. No ductal dilatation. POS: RRE
[2020-04-25] MEDS ORDERED: Acetaminophen 325 MG TAB PO PRN (11:29)
[2020-04-25 12:36] LABS: SARS-CoV-2 MS2 Positive; SARS-CoV-2 N Gene Negative; SARS-CoV-2 S Gene Negative; SARS-CoV-2 by NAA Not Detected (NotDetected); SARS-CoV-2 orf1ab Negative
[2020-04-25] MEDS ORDERED: Communication Order-Pharmacy FS SCH (16:00)
[2020-04-25] MEDS: cefTRIAXone\\ROCEPHIN 1 GM in Sodium Chloride 0.9% 100 ML IVPB SCH (16:49)
--- NOTE | 2020-04-25 17:40 | PDOC.HOSPP ---
- Subjective Encounter Date: 04/25/20 Subjective: Patient is feeling substantially better. He reports that he had a brief episode of some chest discomfort followed by nausea vomiting and flulike symptoms that lasted 20 to 30 minutes and then resolved. He has not had a recurrence. - Objective Vital Signs & Weight: Vital Signs (12 hours) Temp Pulse Resp BP Pulse Ox 04/25/20 15:55 97.6 F 61 16 126/60 95 04/25/20 11:08 98.2 F 64 15 100/57 L 97 04/25/20 07:21 98.4 F 69 18 116/55 L 94 L Weight Weight 134 lb I&O: 04/24/20 04/25/20 04/26/20 06:59 06:59 06:59 Intake Total 850 Balance 850 Result Diagrams: 04/25/20 03:41 04/25/20 03:30 Hospitalist ROS - Medication Medications: Active Medications Generic Name Dose Route Start Last Admin Trade Name Freq PRN Reason Stop Dose Admin Acetaminophen 650 mg 04/25/20 11:29 04/25/20 12:18 Acetaminophen 325 Mg Tab PO 650 mg Q6H PRN Administration Headache/Fever or Pain Amlodipine Besylate 2.5 mg 04/25/20 09:00 04/25/20 08:36 Norvasc PO 2.5 mg DAILY LOY Administration Aspirin 81 mg 04/25/20 09:00 04/25/20 08:36 Ecotrin PO 81 mg DAILY LOY Administration Atorvastatin Calcium 20 mg 04/24/20 21:00 04/24/20 20:41 Lipitor PO 20 mg HS LOY Administration Ceftriaxone Sodium 1 gm/ 100 mls @ 200 mls/hr 04/25/20 17:00 04/25/20 16:49 Sodium Chloride IVPB 100 mls Q24HR LOY Administration Isosorbide Mononitrate 30 mg 04/25/20 09:00 04/25/20 08:36 Imdur Er PO 30 mg DAILY LOY Administration Lisinopril 20 mg 04/25/20 09:00 04/25/20 08:36 Zestril PO 20 mg DAILY LOY Administration Metoprolol Tartrate 25 mg 04/24/20 21:00 04/25/20 08:36 Lopressor PO 25 mg BID LOY Administration Pantoprazole Sodium 40 mg 04/25/20 09:00 09/16/20 08:36 Protonix PO 40 mg DAILY LOY Administration - Exam General Appearance: NAD, awake alert Heart: RRR, no murmur, no gallops, no rubs, normal peripheral pulses Respiratory: CTAB, no wheezes, no rales, no ronchi, normal chest expansion, no tachypnea, normal percussion Gastrointestinal: soft, non-distended, normal bowel sounds, no palpable masses, no hepatomegaly, no splenomegaly, no bruit Gastrointestinal - other findings: Very mild tenderness palpation in the right upper quadrant Extremities: no cyanosis, no clubbing, no edema Skin: normal turgor, no lesions, no rashes Musculoskeletal: normal tone, normal strength, no muscle wasting Psychiatric: normal affect, normal behavior, A&O x 3 Hosp A/P (1) Chest pain Code(s): R07.9 - CHEST PAIN, UNSPECIFIED Status: Acute Qualifiers: Chest pain type: chest pain due to myocardial ischemia Ischemic chest pain type: unstable angina pectoris Qualified Code(s): I20.0 - Unstable angina (2) Transaminitis Code(s): R74.0 - NONSPEC ELEV OF LEVELS OF TRANSAMNS & LACTIC ACID DEHYDRGNSE Status: Acute (3) Nausea & vomiting Code(s): R11.2 - NAUSEA WITH VOMITING, UNSPECIFIED Status: Acute (4) Pneumonia Code(s): J18.9 - PNEUMONIA, UNSPECIFIED ORGANISM Status: Acute (5) Hiatal hernia Code(s): K44.9 - DIAPHRAGMATIC HERNIA WITHOUT OBSTRUCTION OR GANGRENE Status: Acute (6) CAD (coronary artery disease) Code(s): I25.10 - ATHSCL HEART DISEASE OF [place] CORONARY ARTERY W/O ANG PCTRS Status: Acute Qualifiers: Coronary Disease-Associated Artery/Lesion type: bypass graft [place] vs. tr ansplanted heart: [place] heart Associated angina: with unstable angina Qualified Code(s): I25.700 - Atherosclerosis of coronary artery bypass graft(s), unspecified, with unstable angina pectoris (7) HLD (hyperlipidemia) Code(s): E78.5 - HYPERLIPIDEMIA, UNSPECIFIED Status: Acute Qualifiers: Hyperlipidemia type: unspecified Qualified Code(s): E78.5 - Hyperlipidemia, unspecified (8) HTN (hypertension) Code(s): I10 - ESSENTIAL (PRIMARY) HYPERTENSION Status: Acute Qualifiers: Hypertension type: essential hypertension Qualified Code(s): I10 - Essential (primary) hypertension (9) S/P CABG x 3 Code(s): Z95.1 - PRESENCE OF AORTOCORONARY BYPASS GRAFT Status: Acute (10) NSTEMI (non-ST elevated myocardial infarction) Code(s): I21.4 - NON-ST ELEVATION (NSTEMI) MYOCARDIAL INFARCTION Status: Acute - Plan NSTEMI: Patient had chest pain with a physiologic but small rise in his troponins. Card iology consulted. Patient has a history of coronary disease. Continue aspirin therapy Nausea vomiting: Appears to be resolved. Etiology is unclear. Patient only had about 20 to 30 minutes of symptoms. He does have a large hiatal hernia that could have caused some of the symptoms were there is some occlusion. He also has some transaminitis. Is possible given the elevated bilirubin that he passed a duct stone although nothing was seen on his ultrasound. Transaminitis: Etiology unclear. Again possibly could have passed the duct stone although that is probably low likelihood. His enzymes are improving. He has very subtle tenderness in the right upper quadrant. GI consult. Patient has followed with Dr. Mauricio in the past. Pneumonia: Patient had evidence of nodular infiltrate on CT scan concerning for infection. Given his vomiting he may have some aspiration component. He appears to have a normalized white count and no fever. We will need to monitor closely. If he does become symptomatic may need to alter his regimen to Levaquin to cover community-acquired and aspiration components a little better. Hiatal hernia: CT scan shows a significant portion of the stomach is in the thorax. Unclear if this is relevant to his current symptomatology. Again GI consulted. Continue PPI.
[2020-04-25] MEDS: Azithromycin 500 MG in Sodium Chloride 0.9% 250 ML 250 ML IVPB SCH (18:53)
[2020-04-25] MEDS: Atorvastatin Calcium 20 MG TAB PO SCH (19:25)
--- NOTE | 2020-04-25 20:36 | CON ---
DATE OF CONSULTATION: 04/25/2020 REASON FOR CONSULTATION: Abnormal liver profile and chest pain. HISTORY OF PRESENT ILLNESS: Mr. Ash is an 84-year-old male, who is well known to me, although the last time I saw him was six years ago. He has a history of chronic GE reflux from hiatal hernia and short-segment Fernandez's. His last upper endoscopy was in 2013, at which time he also had a colonoscopy that showed diverticulosis, but otherwise normal. The patient presented to the ER after having an episode of retrosternal chest pain described as pressure, tightness, associated nausea or vomiting, and some shortness of breath. This lasted for about 15 minutes. He also had some nausea and some small amount of emesis. The patient presented to the emergency room for evaluation. His troponin level was elevated and so was his liver enzymes to the 200s range and bilirubin in the 3 range. The patient is currently doing well with resolution of his admitting symptoms. CT angiogram performed did not show any evidence of embolism. There is no evidence of aneurysm dissection. Of note, he does have a fairly large hiatal hernia. The patient denies having any previous liver disease. There is no prior jaundice. There is no family history of liver disease. PAST MEDICAL HISTORY: 1. Coronary artery disease, status post bypass surgery. 2. Hypertension. 3. Hyperlipidemia. 4. Psoriasis. 5. GE reflux with short-segment Fernandez's. 6. Status post cholecystectomy. MEDICATIONS: At home include; 1. Etanercept. 2. Aspirin. 3. Omeprazole 40 mg daily. 4. Simvastatin. 5. Amlodipine. 6. Isosorbide mononitrate. 7. Lisinopril. 8. Metoprolol. ALLERGIES: NONE. SOCIAL HISTORY: The patient is , lives with his . He has no tobacco or alcohol usage. FAMILY HISTORY: Negative for any known GI problem, liver disease, or GI malignancy. REVIEW OF SYSTEMS: Ten-point review of systems did not show any other pertinent positives or negatives. No other reported symptoms other than aforementioned in the history. PHYSICAL EXAMINATION: VITAL SIGNS: Temperature 97.6, blood pressure 126/60, and pulse of 61. GENERAL: He is alert, conversant without distress. HEENT: Shows anicteric sclerae. Oropharynx is clear and moist. CV: Shows normal S1 and S2. Regular rate and rhythm. CHEST: Shows a breath sounds clear to auscultation. ABDOMEN: Soft. No distention. No tympany. No tenderness. No hepatomegaly. He has active bowel sounds. EXTREMITIES: Shows no edema. DIAGNOSTIC DATA: Ultrasound showed normal liver with common bile duct measuring 0.6 cm. LABORATORY DATA: WBCs 9.2, hemoglobin 12.9, MCV of 94, and platelet count of 164. Electrolytes within normal range. Creatinine is 0.9. His bilirubin yesterday was 3.3 and 2.1 today, AST 239 and 102 today, ALT 254 yesterday and 151 today, and alkaline phosphatase 184 yesterday and 139 today. His troponin I level is still rising, 0.053 yesterday and now 0.122. His serum lipase 4. ASSESSMENT: 1. The patient with coronary artery disease presented to the ER with chest pain associated with some nausea, vomiting, and shortness of breath that has since resolved. His blood test does show elevation of troponin I level. The patient is scheduled for cardiac catheterization tomorrow. 2. Elevation of liver enzymes and bilirubin, serologies negative for any evidence of acute viral hepatitis A or B. Negative hep C antibody. I suspect the liver profile elevation is nonspecific and could be due to temporary passive congestion of the liver. His liver profile is trending back down toward normal. It is unlikely that he had any biliary event such as stone or cholangitis with CBD measured 6 mm on US. 3. Chronic gastroesophageal reflux with hiatal hernia and short-segment Fernandez's on omeprazole 40 mg daily. Hiatal hernia appeared large on CT. 4. Hyperlipidemia. 5. Hypertension. 6. Psoriasis. 7. Elevation of liver profile, but there is no evidence of cholangitis at the present time. RECOMMENDATION: 1. Continue to follow the trend of his liver profile. Anticipate that these will normalize with time. 2. No further diagnostic test and evaluation from GI standpoint for now. 3. We will follow up. 4. Antibiotics can be discontinued from GI standpoint. Job ID: [id number] [facility]
[2020-04-26 05:02] LABS: ALT (SGPT) 92 U/L (8-55); AST (SGOT) 47 U/L (5-34); Albumin 3.4 g/dL (3.4-4.8); Alkaline Phosphatase 113 U/L (40-110); Anion Gap 11 mmol/L (10-20); BUN (Urea Nitrogen) 15 mg/dL (8.4-25.7); Bilirubin, Total 1.1 mg/dL (0.2-1.2); Calc. Creatinine Clearance 52 mL/min (70-130); Calcium 8.3 mg/dL (7.8-10.44); Carbon Dioxide 24 mmol/L (23-31); Chloride 108 mmol/L (98-107); Estimated GFR-MDRD 76; Globulin 2.3 g/dL (2.4-3.5); Glucose 95 mg/dL (83-110); Potassium 3.7 mmol/L (3.5-5.1); Protein, Total 5.7 g/dL (5.8-8.1); Sodium 139 mmol/L (136-145)
[2020-04-26] MEDS: Lisinopril 20 MG TAB PO SCH (05:46)
[2020-04-26] MEDS: Aspirin 81 mg Enteric Coated Tablet PO SCH (05:47)
[2020-04-26] MEDS: Metoprolol Tartrate 25 MG TAB PO SCH ×2 (05:47→20:01)
[2020-04-26] MEDS: Amlodipine 5 MG TAB PO SCH (05:47)
[2020-04-26] MEDS ORDERED: Sodium Chloride 0.9% 1,000 ML IV SCH ×2 (06:00→08:27)
[2020-04-26] MEDS ORDERED: Heparin 10,000 UNITS/ 10 ML VIAL ONE (06:40)
[2020-04-26] MEDS ORDERED: Lidocaine 1% PF 5 ML VIAL ONE (06:40)
[2020-04-26] MEDS ORDERED: Fentanyl 100 MCG/2 ML VIAL ONE (07:09)
[2020-04-26] MEDS ORDERED: Midazolam HCl 2 mg/2 ml Vial ONE (07:09)
[2020-04-26] MEDS ORDERED: Bivalirudin 250 MG VIAL ONE (07:31)
[2020-04-26] MEDS ORDERED: Clopidogrel Bisulfate 300 MG TAB ONE (07:44)
[2020-04-26] MEDS ORDERED: Adenosine 6 MG/2 ML VIAL ONE (07:49)
[2020-04-26] MEDS ORDERED: Nitroglycerin 100MG/250ML BOT 250 ML ONE (07:50)
[2020-04-26] MEDS ORDERED: Morphine 2 MG/ML VIAL SLOW IVP PRN (08:26)
[2020-04-26] MEDS ORDERED: Nitroglycerin 0.4 MG TAB (25 Tab Bottle) SL PRN (08:26)
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
[2020-04-26] MEDS ORDERED: Clopidogrel Bisulfate 75 MG TAB PO SCH (09:00)
[2020-04-26] MEDS ORDERED: Iopamidol 370 76% 50 ML VIAL FS ONE (09:27)
[2020-04-26] MEDS ORDERED: Iopamidol 370 76% 100 ML VIAL ONE (09:27)
[2020-04-26] MEDS ORDERED: Aspirin Chewable 81 MG TAB ONE (09:32)
[2020-04-26] MEDS: Aspirin Chewable 81 MG TAB PO SCH (10:10)
--- NOTE | 2020-04-26 15:54 | PDOC.HOSPP ---
- Subjective Encounter Date: 04/26/20 Encounter Time: 15:53 Subjective: Patient was not physically examined by [facility] Pulmonology/commercial housekeeper team already made assessments. She is currently being managed for COVID pneumonia No significant events overnight - Objective Vital Signs & Weight: Vital Signs (12 hours) Temp Pulse Resp BP BP Pulse Ox 04/26/20 12:05 98.0 F 66 17 176/81 H 96 04/26/20 05:47 65 04/26/20 05:46 134/60 Weight Weight 136 lb 6.4 oz I&O: 04/25/20 04/26/20 04/27/20 06:59 06:59 06:59 Intake Total 850 880 700 Output Total 100 0 Balance 850 780 700 Result Diagrams: 04/25/20 03:41 04/26/20 04:25 Hospitalist ROS - Medication Medications: Active Medications Generic Name Dose Route Start Last Admin Trade Name Freq PRN Reason Stop Dose Admin Acetaminophen 650 mg 04/25/20 11:29 04/25/20 12:18 Acetaminophen 325 Mg Tab PO 650 mg Q6H PRN Administration Headache/Fever or Pain Amlodipine Besylate 2.5 mg 04/25/20 09:00 04/26/20 05:47 Norvasc PO 2.5 mg DAILY LOY Administration Aspirin 81 mg 04/25/20 09:00 04/26/20 05:47 Ecotrin PO 81 mg DAILY LOY Administration Aspirin 81 mg 04/26/20 09:00 04/26/20 10:10 Aspirin Chewable 81 Mg Tab PO 81 mg DAILY LOY Administration Atorvastatin Calcium 20 mg 04/24/20 21:00 04/25/20 19:25 Lipitor PO 20 mg HS LOY Administration Ceftriaxone Sodium 1 gm/ 100 mls @ 200 mls/hr 04/25/20 17:00 04/25/20 16:49 Sodium Chloride IVPB 100 mls Q24HR LYO Administration Azithromycin 500 mg/ Sodium 250 mls @ 250 mls/hr 04/25/20 17:00 04/25/20 18:53 Chloride IVPB 250 mls Q24HR LOY Administration Isosorbide Mononitrate 30 mg 04/25/20 09:00 04/26/20 05:47 Imdur Er PO 30 mg DAILY LOY Administration Lisinopril 20 mg 04/25/20 09:00 04/26/20 05:46 Zestril PO 20 mg DAILY LOY Administration Metoprolol Tartrate 25 mg 04/24/20 21:00 04/26/20 05:47 Lopressor PO 25 mg BID LOY Administration Pantoprazole Sodium 40 mg 04/25/20 09:00 04/26/20 05:47 Protonix PO 40 mg DAILY LOY Administration
[2020-04-26] MEDS: cefTRIAXone\\ROCEPHIN 1 GM in Sodium Chloride 0.9% 100 ML IVPB SCH (16:18)
[2020-04-26] MEDS: Azithromycin 500 MG in Sodium Chloride 0.9% 250 ML 250 ML IVPB SCH (17:37)
--- NOTE | 2020-04-26 18:31 | PDOC.HOSPP ---
- Subjective Encounter Date: 04/26/20 Subjective: Patient had cath today. He had a couple of stents placed. He is feeling quite well afterwards. He is ready to get off his back. He has little bit of back pain but otherwise feels well. - Objective Vital Signs & Weight: Vital Signs (12 hours) Temp Pulse Resp BP Pulse Ox 04/26/20 15:54 98.5 F 68 18 147/70 H 95 04/26/20 12:05 98.0 F 66 17 176/81 H 96 Weight Weight 136 lb 6.4 oz I&O: 04/25/20 04/26/20 04/27/20 06:59 06:59 06:59 Intake Total 850 880 820 Output Total 100 275 Balance 850 780 545 Result Diagrams: 04/25/20 03:41 04/26/20 04:25 Hospitalist ROS - Medication Medications: Active Medications Generic Name Dose Route Start Last Admin Trade Name Freq PRN Reason Stop Dose Admin Acetaminophen 650 mg 04/25/20 11:29 04/25/20 12:18 Acetaminophen 325 Mg Tab PO 650 mg Q6H PRN Administration Headache/Fever or Pain Amlodipine Besylate 2.5 mg 04/25/20 09:00 04/26/20 05:47 Norvasc PO 2.5 mg DAILY LOY Administration Aspirin 81 mg 04/25/20 09:00 04/26/20 05:47 Ecotrin PO 81 mg DAILY LOY Administration Aspirin 81 mg 04/26/20 09:00 04/26/20 10:10 Aspirin Chewable 81 Mg Tab PO 81 mg DAILY LOY Administration Atorvastatin Calcium 20 mg 04/24/20 21:00 04/25/20 19:25 Lipitor PO 20 mg HS LOY Administration Ceftriaxone Sodium 1 gm/ 100 mls @ 200 mls/hr 04/25/20 17:00 04/26/20 16:18 Sodium Chloride IVPB 100 mls Q24HR LOY Administration Azithromycin 500 mg/ Sodium 250 mls @ 250 mls/hr 04/25/20 17:00 04/26/20 17:37 Chloride IVPB 250 mls Q24HR LOY Administration Isosorbide Mononitrate 30 mg 04/25/20 09:00 04/26/20 05:47 Imdur Er PO 30 mg DAILY LOY Administration Lisinopril 20 mg 04/25/20 09:00 04/26/20 05:46 Zestril PO 20 mg DAILY LOY Administration Metoprolol Tartrate 25 mg 04/24/20 21:00 04/26/20 05:47 Lopressor PO 25 mg BID LOY Administration Pantoprazole Sodium 40 mg 04/25/20 09:00 04/26/20 05:47 Protonix PO 40 mg DAILY LOY Administration - Exam General Appearance: NAD, awake alert Heart: RRR, no murmur, no gallops, no rubs, normal peripheral pulses Respiratory: CTAB, no wheezes, no rales, no ronchi, normal chest expansion, no tachypnea, normal percussion Gastrointestinal: soft, non-tender, non-distended, normal bowel sounds, no palpable masses, no hepatomegaly, no splenomegaly, no bruit Extremities: no cyanosis, no clubbing, no edema Skin: normal turgor Musculoskeletal: normal tone, normal strength, no muscle wasting Psychiatric: normal affect, normal behavior, A&O x 3 Hosp A/P (1) NSTEMI (non-ST elevated myocardial infarction) Code(s): I21.4 - NON-ST ELEVATION (NSTEMI) MYOCARDIAL INFARCTION Status: Acute (2) Angina pectoris Code(s): I20.9 - ANGINA PECTORIS, UNSPECIFIED Status: Acute (3) Transaminitis Code(s): R74.0 - NONSPEC ELEV OF LEVELS OF TRANSAMNS & LACTIC ACID DEHYDRGNSE Status: Acute (4) Nausea & vomiting Code(s): R11.2 - NAUSEA WITH VOMITING, UNSPECIFIED Status: Acute (5) Pneumonia Code(s): J18.9 - PNEUMONIA, UNSPECIFIED ORGANISM Status: Acute (6) Hiatal hernia Code(s): K44.9 - DIAPHRAGMATIC HERNIA WITHOUT OBSTRUCTION OR GANGRENE Status: Acute (7) CAD (coronary artery disease) Code(s): I25.10 - ATHSCL HEART DISEASE OF [place] CORONARY ARTERY W/O ANG PCTRS Status: Acute Qualifiers: Coronary Disease-Associated Artery/Lesion type: bypass graft [place] vs. 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 Cardiology consulted. Patient has a history of coronary disease. Cath today with a couple of stents placed. Continue aspirin therapy Nausea vomiting: Appears to be resolved. Etiology is unclear. Patient only had about 20 to 30 minutes of symptoms. He does have a large hiatal hernia that could have caused some of the symptoms were there is some occlusion. He also has some transaminitis. Is possible given the elevated bilirubin that he passed a duct stone although nothing was seen on his ultrasound. Transaminitis: Etiology unclear. Again possibly could have passed the duct stone although that is probably low likelihood. His enzymes are improving. He had very subtle tenderness in the right upper quadrant. GI consult. Suggestion is possible transient passive congestion of the liver. Numbers have normalized today. Pneumonia: Patient had evidence of nodular infiltrate on CT scan concerning for infection. Given his vomiting he may have some aspiration component. He appears to have a normalized white count and no fever. We will need to monitor closely. Continuing Rocephin and azithromycin. Will likely need some p.o. antibiotics for a while. He will need a follow-up imaging at some point to ensure resolution. Hiatal hernia: CT scan shows a significant portion of the stomach is in the thorax. Unclear if this is relevant to his current symptomatology. Again GI consulted. Continue PPI.
[2020-04-26] MEDS: Atorvastatin Calcium 20 MG TAB PO SCH (20:01)
--- NOTE | 2020-04-27 00:14 | PRG ---
DATE OF SERVICE: 04/26/2020 SUBJECTIVE: Mr. Ash had his heart catheterization done today and is having no problems after that procedure. He had a couple of stents placed . OBJECTIVE: VITAL SIGNS: Temperature 97.9, pulse 61, and blood pressure 147/69. GENERAL: He is in no acute distress. Awake and alert. LUNGS: Clear to auscultation bilaterally. HEART: Regular rate and rhythm without murmur. ABDOMEN: Soft, nontender, and nondistended. Bowel sounds are present. EXTREMITIES: No lower extremity edema. IMPRESSION: 1. Abnormal liver tests. His transaminases and bilirubin are trending down. He likely had some ischemic hepatopathy or congestive hepatopathy contributing to the acute rise and now decrease in his liver tests. We will continue to follow the trend of his liver tests. 2. Non ST-elevation myocardial infarction, status post cardiac catheterization today with stent placement. RECOMMENDATIONS: Continue to follow trend of the liver test. Job ID: [id number]
[2020-04-27 04:30] LABS: #Eosinphils 0.7 thou/uL (0.0-0.7); #Lymphocytes 1.6 thou/uL (1.20-3.40); #Monocytes 0.6 thou/uL (0.11-0.59); #Neutrophils 3.7 thou/uL (1.40-6.50); %Basophils 0.7 % (0.0-1.0); %Eosinophils 10.1 % (0.0-10.0); %Lymphocytes 23.6 % (21.0-51.0); %Monocytes 9.5 % (0.0-10.0); %Neutrophils 56.1 % (42.0-75.0); Hemoglobin 12.4 g/dL (14.0-18.0); Mean Corpuscular Hemoglobin 30.6 pg (27.0-31.0); Mean Corpuscular Volume 92.9 fL (78.0-98.0); Mean Platelet Volume 9.2 fL (7.4-10.4); Platelet Count 159 thou/uL (130-400); RBC Distribution Width 12.8 % (11.5-14.5); Red Blood Cell (RBC) Count 4.05 mill/uL (4.70-6.10); White Blood Cell (WBC) Count 6.7 thou/uL (4.8-10.8)
[2020-04-27 05:08] LABS: ALT (SGPT) 69 U/L (8-55); AST (SGOT) 37 U/L (5-34); Albumin 3.5 g/dL (3.4-4.8); Alkaline Phosphatase 115 U/L (40-110); Anion Gap 14 mmol/L (10-20); BUN (Urea Nitrogen) 11 mg/dL (8.4-25.7); Calc. Creatinine Clearance 66 mL/min (70-130); Calcium 8.7 mg/dL (7.8-10.44); Carbon Dioxide 23 mmol/L (23-31); Chloride 107 mmol/L (98-107); Estimated GFR-MDRD Greater than 90; Globulin 2.3 g/dL (2.4-3.5); Glucose 93 mg/dL (83-110); Potassium 3.5 mmol/L (3.5-5.1); Protein, Total 5.8 g/dL (5.8-8.1); Sodium 140 mmol/L (136-145)
[2020-04-27 07:38] VITALS: BP 141/68; TEMP 98
[2020-04-27] MEDS ORDERED: Clopidogrel Bisulfate 75 MG TAB PO SCH (09:00)
[2020-04-27] MEDS: Aspirin Chewable 81 MG TAB PO SCH (09:24)
[2020-04-27] MEDS: Aspirin 81 mg Enteric Coated Tablet PO SCH (09:25)
[2020-04-27] MEDS: Amlodipine 5 MG TAB PO SCH (09:25)
[2020-04-27] MEDS: Metoprolol Tartrate 25 MG TAB PO SCH (09:26)
[2020-04-27] MEDS: Lisinopril 20 MG TAB PO SCH (09:26)
--- NOTE | 2020-04-27 14:41 | PRG ---
DATE OF SERVICE: 04/27/2020 SUBJECTIVE: Mr. Ash feels well today. He has no chest pain or other complaints. OBJECTIVE: His abdomen is soft, nontender, and nondistended. Bowel sounds are present. LABORATORY DATA: His bilirubin is decreased to 1.0, AST 37, ALT 69, and alkaline phosphatase 115. IMPRESSION: Abnormal liver function tests. Mild ischemic hepatopathy or congestive hepatopathy is suspected. His labs continue to improve. RECOMMENDATIONS: He is recovering from his heart catheterization well. No further GI intervention or liver intervention should be indicated at this point. He can follow up in the office to recheck the trend of his liver tests in 2 to 4 weeks. This was discussed with his family members, and they can call to schedule as is convenient. Job ID: [id number]
--- NOTE | 2020-04-28 09:42 | DIS ---
DATE OF ADMISSION: 04/25/2020 DATE OF DISCHARGE: 04/27/2020 DISCHARGE DIAGNOSES: 1. [id number] myocardial infarction, type 1. 2. Nausea, vomiting. 3. Chest pain. 4. Transaminitis. 5. Hypertension. 6. Hyperlipidemia. 7. Pneumonia. 8. Psoriasis. 9. Hiatal hernia. HISTORY OF PRESENT ILLNESS: The patient is an 84-year-old male with a history of some coronary artery disease, who presented to the hospital with an episode of chest pain followed by nausea and vomiting, that resolved within 20 to 30 minutes. The patient presented to the hospital, where he had a very slight elevation of his troponin at 0.053. He did not have significant ischemic changes on EKG. HOSPITAL COURSE: The patient was admitted to the hospital. He was noted to have elevation of his liver enzymes with total bilirubin 3.3, AST 39, ALT 254, and alkaline phosphatase 184. He maintained on telemetry. He did have a slight rise in his troponins, which peaked at 0.122 and then started to decline. Repeat labs also showed some improvement of his liver enzymes. CTA of his chest appeared to show some nodular infiltrates on the right side consistent with infection. He also had a significant hiatal hernia. He was seen in consultation by GI and Cardiology. GI felt that he possibly had some passive liver congestion. He had normal liver ultrasound and his LFTs continued to normalize. He had no symptoms related to this at all. Cardiology took the patient to pharmacy laboratory technician, where he had a PCI and CHAD of the distal graft to the 2nd OM and within a prior restenosed stent as well. Subsequently, the patient did well. He had no recurrence of symptoms. He was up and ambulating and felt to be stable for discharge to home. PHYSICAL EXAMINATION: VITAL SIGNS: On the day of discharge, temperature is 98.0, pulse 68, respirations 17, O2 saturation 97% on room air, BP is 141/68. GENERAL: He was awake, alert, pleasant, cooperative. HEART: Regular. LUNGS: Clear. ABDOMEN: Benign. EXTREMITIES: No edema. DISPOSITION: The patient is discharged to home. ACTIVITY: As tolerated. DIET: He will be on a heart-healthy diet. MEDICATIONS: 1. Plavix 75 mg daily. 2. Levaquin 750 mg daily. 3. Simvastatin 40 mg at bedtime. 4. Nexium 40 mg daily. 5. Imdur ER 30 mg daily. 6. Lisinopril 20 mg daily. 7. Metoprolol 25 mg b.i.d. 8. Inderal 50 mg subcutaneously every week for psoriasis. 9. Aspirin 81 mg daily. 10. Amlodipine 2.5 mg daily. The patient is to follow up with his PCP and with Dr. Bowers. The patient will need some additional imaging of his chest at some point in the future to ensure complete resolution of the x-ray findings. The patient and his family were informed of this. A message was sent to his PCP, Dr. Croft, to inform him of that as well. He can return to the hospital at anytime he has the need to do so. TIME SPENT: Time spent in discharge activities was greater than 30 minutes. Job ID: [id number] MTDD
--- NOTE | 2020-04-28 13:12 | EKG ---
Test Reason : Blood Pressure : / mmHG Vent. Rate : 088 BPM Atrial Rate : 088 BPM P-R Int : 120 ms QRS Dur : 094 ms QT Int : 376 ms P-R-T Axes : 050 -09 058 degrees QTc Int : 454 ms Normal sinus rhythm Incomplete right bundle branch block Minimal voltage criteria for LVH, may be normal variant Nonspecific ST abnormality Abnormal ECG 1mm depression lateral leads Confirmed by SPENSER Webb, KEVEN ([id number]), editor managing director TATO MORALES ([id number]) on 04/28/2020 1:12:33 PM Referred By: Confirmed By:KEVEN DUEÑAS M.D.
--- NOTE | 2020-04-30 11:15 | PQF ---
CLINICAL DOCUMENTATION CLARIFICATION FORM: Dear : Didier Bowers MD Date / Time: 04/30/2020 Please exercise your independent, professional judgment in responding to the clarification form. Clinical indicators are provided on the bottom of this form for your review Procedure: PTCA of OM graft [ x ] PTCA with Drug eluting stent [ ] PTCA with bare metal stent [ ] Unable to determine [ ] Other procedure: (Please specify if any) Physician Signature: Date/Time: For continuity of documentation, please document condition throughout progress notes and discharge summary. Thank You. To be completed by CDI/Coding staff for physician review: Present Clinical Indicators - Signs / Symptoms / Labs Results and Location in Medical Record [ x ] CHAD with PTCA dental laboratory worker procedural report on 04/26 pg2 [ x ] Place stent: SYNERGY(MR) [id number], SYNERGY(MR) [id number] dental laboratory worker procedural report on 04/26 pg10 [ x ] He had a PCI and CHAD of the distal graft to the 2nd OM and within a prior restenosed graft stent as well Discharge summary on 04/28 [ ] The area was predilated and then PROMUS 3.0x32 mm drug eluting stent was placed. Post stent deployment, there was no flow-YEARS AGO, NOT NOW Consult on 04/26 Present Risk Factors Results and Location in Medical Record [x ] Non-ST elevation myocardial infarction type1 Discharge summary on 04/28 [ ] [ ] [ ] Present Treatments Results and Location in Medical Record [ x ] PTCA dental laboratory worker procedural report on 04/26 [ ] [ ] [ ] CDS/Professional Caster Signature: AAS Phone #: Date/Time: . This is a permanent part of the Medical Record [facility]
--- NOTE | 2020-04-30 15:17 | EKG ---
Test Reason : POST CATH Blood Pressure : / mmHG Vent. Rate : 063 BPM Atrial Rate : 063 BPM P-R Int : 122 ms QRS Dur : 110 ms QT Int : 442 ms P-R-T Axes : 036 -13 045 degrees QTc Int : 452 ms Normal sinus rhythm Incomplete right bundle branch block Minimal voltage criteria for LVH, may be normal variant Nonspecific T wave abnormality Abnormal ECG When compared with ECG of 24-APR-2020 13:05, (Unconfirmed) No significant change was found Confirmed by SHIELA LORENZO M.D. ([id number]) on 04/30/2020 3:17:09 PM Referred By: [place] Confirmed By:SHIELA LORENZO M.D.
--- NOTE | 2020-04-30 15:37 | EKG ---
Test Reason : Blood Pressure : / mmHG Vent. Rate : 070 BPM Atrial Rate : 070 BPM P-R Int : 128 ms QRS Dur : 098 ms QT Int : 426 ms P-R-T Axes : 036 -10 057 degrees QTc Int : 460 ms Normal sinus rhythm Incomplete right bundle branch block Minimal voltage criteria for LVH, may be normal variant Prolonged QT Abnormal ECG When compared with ECG of 26-APR-2020 08:50, (Unconfirmed) No significant change was found Confirmed by SHIELA LORENZO M.D. ([id number]) on 04/30/2020 3:37:10 PM Referred By: [place] Confirmed By:SHIELA LORENZO M.D.
== END 2020-04-27 11:30 | disposition home or self-care (01) | DRG 246 ==
LOC: ERS 12:52 → 2SW 16:18 → OBSVTOIN 04-25 18:11 → 2NO 04-26 09:39
PROVIDERS: ADMIT Student in an Organized Health Care Education/Training Program; ATTEND Student in an Organized Health Care Education/Training Program
PROC: 027035Z Dilation of Coronary Artery, One Artery with Two Drug-eluting Intraluminal Devices, Percutaneous Approach (ICD-10-PCS; 2020-04-25)
PROC: B2151ZZ Fluoroscopy of Left Heart using Low Osmolar Contrast (ICD-10-PCS; 2020-04-25)
PROC: 4A023N7 Measurement of Cardiac Sampling and Pressure, Left Heart, Percutaneous Approach (ICD-10-PCS; 2020-04-25)
PROC: B2111ZZ Fluoroscopy of Multiple Coronary Arteries using Low Osmolar Contrast (ICD-10-PCS; principal; 2020-04-26)
PROC: B2181ZZ Fluoroscopy of Left Internal Mammary Bypass Graft using Low Osmolar Contrast (ICD-10-PCS; 2020-04-26)
DX: I21.4 Non-ST elevation (NSTEMI) myocardial infarction (principal); J18.9 Pneumonia, unspecified organism; T82.855A Stenosis of coronary artery stent, initial encounter; R07.9 Chest pain, unspecified; E78.5 Hyperlipidemia, unspecified; F17.210 Nicotine dependence, cigarettes, uncomplicated; I25.10 Atherosclerotic heart disease of native coronary artery without angina pectoris; L40.9 Psoriasis, unspecified; K75.9 Inflammatory liver disease, unspecified; E78.00 Pure hypercholesterolemia, unspecified; K21.9 Gastro-esophageal reflux disease without esophagitis; Z20.828 Contact with and (suspected) exposure to other viral communicable diseases; R74.0 Nonspecific elevation of levels of transaminase and lactic acid dehydrogenase [LDH]; Y83.9 Surgical procedure, unspecified as the cause of abnormal reaction of the patient, or of later complication, without mention of misadventure at the time of the procedure; K44.9 Diaphragmatic hernia without obstruction or gangrene; Z90.49 Acquired absence of other specified parts of digestive tract; Z79.82 Long term (current) use of aspirin; Z95.5 Presence of coronary angioplasty implant and graft; Z95.1 Presence of aortocoronary bypass graft; Y92.9 Unspecified place or not applicable
CPT/HCPCS: 36415; 71045; 71275; 72191; 74175; 76705; 80053; 80074; 82550; 82553; 83690; 84484; 85025; 85347; 87635; 92928; 92929; 93005; 93010; 93458; 94760; 96365; 96366; 96367; 96372; 96376; 97139; 99152; 99153; C1874; G0378; J0153; J0456; J0583; J0696; J1644; J1650; J2250; J3010; J3490; J7050; Q9967; U0003